=== PATIENT | female | born 1960 | race Caucasian/White ===

== ENCOUNTER 2018-06-01 19:21 | Emergency (ER) | payer BC ==
[2018-06-01 19:43] VITALS: RESP 22; TEMP 96.9
[2018-06-01 20:45] LABS: BASOPHILS % (AUTO) 1 % (0-3); EOSINOPHILS % (AUTO) 1 % (0-9); HEMATOCRIT 38 % (35-47); HEMOGLOBIN 12.9 gm/dl (12.0-15.5); LYMPHOCYTES % (AUTO) 31.5 % (10-50); MEAN CORPUSCULAR HEMOGLOBIN 30.9 pg (27.0-32.0); MEAN CORPUSCULAR VOLUME 91 fL (81-99); MONOCYTES % (AUTO) 9.1 % (0-12); NEUTROPHILS % (AUTO) 57.9 % (37-80)
[2018-06-01 21:13] LABS: ALBUMIN 3.8 gm/dl (3.4-5.0); BILIRUBIN,TOTAL 0.5 mg/dl (0.2-1.0); CALCIUM 8.5 mg/dl (8.5-10.1); CARBON DIOXIDE 24.4 mEq/L (21-32); CREATININE 0.87 mg/dl (0.60-1.00); POTASSIUM 3.7 mMol/L (3.5-5.1)
[2018-06-01 22:23] VITALS: BP 132/85; PULSE 76; O2SAT 95
== END 2018-06-01 21:29 | disposition home or self-care (01) ==
LOC: ED 19:21
DX: K92.1 Melena (principal); R19.7 Diarrhea, unspecified; F41.9 Anxiety disorder, unspecified
CPT/HCPCS: 36415; 80053; 85025; 99282; 99283

== ENCOUNTER 2018-06-04 11:28 | Day surgery (SDC) | payer BC ==
[~2018-06-04 11:28] MED LIST: LIDOCAINE HCL 1% MPF 30 SOL ONE; PROPOFOL 500 MG/50 ML EMU IV ONE
[2018-06-04 13:18] VITALS: BP 125/87; PULSE 69; RESP 20; TEMP 97.5; O2SAT 100
== END 2018-06-04 13:30 | disposition home or self-care (01) ==
LOC: SURG 11:28
PROVIDERS: ATTEND Surgery
DX: K62.5 Hemorrhage of anus and rectum (principal); Z85.038 Personal history of other malignant neoplasm of large intestine; Z98.0 Intestinal bypass and anastomosis status; K57.32 Diverticulitis of large intestine without perforation or abscess without bleeding; L53.8 Other specified erythematous conditions; K63.5 Polyp of colon
CPT/HCPCS: 99001; J2001; J2704